=== PATIENT | male | born 1970 | race Caucasian/White ===

== ENCOUNTER 2016-04-23 15:44 | Emergency (ER) | payer SELFPAY ==
[2016-04-23 15:49] VITALS: BP 121/82
[2016-04-23] MEDS ORDERED: TETRACAINE HCL 150 DROP BTL ONE (15:50)
--- NOTE | 2016-04-23 16:29 | ERNOTE ---
ENT HPI Date of Service: 04/23/16 Presenting Symptoms: eye pain Time Seen by Provider: 04/23/16 16:27 Source: patient, RN notes reviewed Exam Limitations: no limitations - Immun/Allergies/Home Medications Immunizations: IMMUNIZATION HX Immunizations Up to Date Yes History of Influenza Vaccine No Hx Pneumococcal Vaccination No Allergies/Adverse Reactions: Allergies Allergy/AdvReac Type Severity Reaction Status Date / Time acetaminophen [From Tylenol] AdvReac Vomiting Verified 04/23/16 15:49 Home Medications: HOME MEDICATIONS NK [No Home Medication] 04/23/16 [Last Taken Unknown] - History of Present Illness Narrative: 45 y/o male to ED with right eye pain since this morning. He reports having pain for 2 days about a week ago, but it resolved. He thought he could see a foreign body over the medial aspect of the iris. He attempted to remove it but was unsuccessful. He has not been taking anything for his symptoms. He does not wear glasses or contacts. ENT Location: Present: eye (R) Prearrival Treatment: Present: no prearrival treatment Prior Treament: Reports: similar symptoms before Review of Systems - Review of Systems Constitutional: Absent: fever, chills, malaise EYE: Present: eye pain. Absent: eye discharge, blurred vision, vision changes, tearing ENT: Absent: ear pain, nose congestion, nasal drainage, sore throat Respiratory: Present: no symptoms reported Cardiology: Present: no symptoms reported Gastrointestinal/Abdominal: Present: no symptoms reported Genitourinary: Present: no symptoms reported Musculoskeletal: Present: no symptoms reported Skin: Absent: rash, lesions Neurological: Absent: headache, dizziness/light-headedness Endocrine: Present: no symptoms reported Hematologic/Lymphatic: Present: no symptoms reported Psych: Present: no symptoms reported - Patient's Past Medical History Patient History - Medical: Other Patient History - Cardiac/Respiratory: No pertinent hx Patient History - Cancer: No Hx of Cancer Patient History - Surgical Procedures: No surgical history Patient History - Other: None - Social History Living Situations: home Abuse History: No History of abuse Psych History: No pertinent hx Alcohol Use: rarely Drug Use: none - Immunizations Immunizations Up to Date: Yes Hx Pneumococcal Vaccination: No History of Influenza Vaccine: No Physical Exam - Physical Exam General Appearance: Present: wd/wn, alert, no apparent distress Eye Exam: PERRL: bilateral, EOMI: bilateral, Sclera injection: right - mild, Photophobia: right, Other: bilateral - No eye drainage or eyelid inflammation Ears, Nose, Throat: Present: hearing grossly normal Respiratory: Present: no respiratory distress, no accessory muscle use Neurological Exam: Present: alert, oriented, normal mood/affect Skin Exam: Present: normal color, warm/dry ED Progress - Vital Signs Patient's Vital Signs:: I have reviewed the patient's vital signs. Vital Signs: Vital Signs 04/23/16 15:46 Temperature 36.5 C Pulse Rate 90 Respiratory 12 Rate Blood Pressure 121/82 O2 Sat by Pulse 95 Oximetry - Progress/Reassessment Chief Complaint: Eye Injury/Trauma Progress:: Improved Procedures Eye Location: right eye Eyes - Both: 1 - small, black debris Tetracaine Drops Administered: Yes Eye - Cornea: Right: examined w/fluorescein, fluorescein dye uptake - minimal - at site of FB, foreign body Eye FB Removal: removal w/ cotton swab Antibiotic Ointment/Drps Admin: right eye Complications: Pt chad procedure well Departure Clinical Impression: Corneal foreign body Qualifiers: Encounter type: initial encounter Laterality: right Qualified Code(s): T15.01XA - Foreign body in cornea, right eye, initial encounter - Departure Disposition: Home Follow Up Needed Condition: Good Instructions: Eye Foreign Body Additional Instructions: Ibuprofen for pain/inflammation Eye ointment as directed See your eye doctor if still having pain in 2 to 3 days Referrals: Amanda Reich, MEDICAL LABORATORY TECHNICAL OFFICER [Primary Care Provider] -
[2016-04-23] MEDS ORDERED: GENTAMICIN SULFATE 3.5 APPL TUBE RIGHTEYE ONE (16:42)
[2016-04-23] MEDS ORDERED: GENTAMICIN SULFATE 3.5 APPL TUBE ONE (16:49)
== END 2016-04-23 16:42 | disposition home or self-care (01) ==
LOC: ER 15:44
PROC: 08C8XZZ Extirpation of Matter from Right Cornea, External Approach (ICD-10-PCS; principal; 2016-04-23)
DX: T15.01XA Foreign body in cornea, right eye, initial encounter (principal)